=== PATIENT | male | born 1955 | race Caucasian/White ===

== ENCOUNTER 2016-10-24 15:31 | Emergency (ER) | payer MEDICARE, OTHER ==
[2016-10-24 15:57] VITALS: TEMP 95.9
--- NOTE | 2016-10-24 16:39 | ED.PDOC ---
History of Present Illness - General Chief Complaint: Syncope/Near Syncope Stated Complaint: syncope Time Seen by Provider: 10/24/16 16:34 Source: patient, RN notes reviewed, EMS notes reviewed Exam Limitations: no limitations - History of Present Illness Initial Comments: His friend stated patient is a care home resident and she went to visit him this afternoon and they were walking to her moss pick[employer] truch to get his clothes [facility] patient doesnt want to wait and seat at the [facility] and while walking suddenly felt weak and leaned on his friends shoulder was able to hold him then gradually seated on the ground was moaning then nurse was called up then ems.Patient had signed DO NOT RESUSCITATE will. Timing/Prior Episodes: remote history - 2 months ago was hospitalized at [facility] and evaluation done according to friend he has bad coronaries and not candidate for CABG since he is a poor surgical risk Precipitating Factors: none Context: activity Loss of Consciousness: brief (seconds) Current Symptoms: back to normal, weakness Allergies/Adverse Reactions: Allergies NO KNOWN ALLERGY Allergy (Verified 11/08/12 14:50) Home Medications: Ambulatory Orders Lisinopril 40 mg PO DAILY 11/08/12 Pravastatin Sodium 20 mg PO BEDTIME 11/08/12 glipiZIDE [(None)] 5 mg PO BID 11/08/12 Acetaminophen [Tylenol] 1,000 mg PO Q4H PRN 10/24/16 Amiodarone HCl 200 mg PO BID 10/24/16 Aspirin [(None)] 325 mg PO QD 10/24/16 Furosemide [Lasix] 40 mg PO DAILY 10/24/16 Lactobacillus [Acidophilus] 1 cap PO DAILY 10/24/16 Magnesium Hydroxide [Milk Of Magnesia] 30 ml PO DAILY PRN 10/24/16 Metoprolol Tartrate 50 mg PO BID 10/24/16 Multiple Vitamin [Multivitamins] 1 cap PO DAILY 10/24/16 Multiple Vitamin [Ocuvite] 1 tab PO DAILY 10/24/16 Pantoprazole Sodium 40 mg PO DAILY 10/24/16 Potassium Chloride [K-Tab] 20 meq PO DAILY 10/24/16 Promethazine HCl 25 - 50 mg PO Q4H PRN 10/24/16 Spironolactone 25 mg PO DAILY 10/24/16 Tamsulosin HCl [Flomax] 0.4 mg PO BEDTIME 10/24/16 amLODIPine BESYLATE [Norvasc] 10 mg PO DAILY 10/24/16 Review of Systems - Review of Systems Constitutional: States: no symptoms reported, weakness EENTM: States: no symptoms reported Respiratory: States: no symptoms reported Cardiology: States: syncope Gastrointestinal/Abdominal: States: no symptoms reported Genitourinary: States: no symptoms reported Skin: States: no symptoms reported Neurological: States: see HPI Endocrine: States: no symptoms reported Hematologic/Lymphatic: States: no symptoms reported Past Medical History (General) - Patient Medical History Hx Seizures: No Hx Stroke: Yes - unknown Hx Asthma: No Hx of COPD: No Hx Cardiac Disorders: Yes - diffuse cad,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 % Hx Congestive Heart Failure: Yes Hx Pacemaker: No Hx Hypertension: Yes Hx Diabetes: Yes Hx Gastroesophageal Reflux: Yes Hx Cancer: Yes - Colon CA Hx MRSA: No Surgical History: colectomy, other - carotid endarterectomy - Vaccination History Hx Influenza Vaccination: Yes Hx Pneumococcal Vaccination: - unknown - Social History Hx Tobacco Use: Yes Hx Alcohol Use: No Hx Substance Use: No Hx Physical Abuse: No Hx Emotional Abuse: No - Activities of Daily Living [facility] (if applicable[facility]:: [facility] ([facility] applicable[facility]:: [facility] Grooming Ability: Minimum Assistance Eating (Feeding) Ability: Independent Toileting Ability: Minimum Assistance Physical Exam - Physical Exam General Appearance: Comfortable, No apparent distress, Other - lethargic Eyes, Ears, Nose, Throat Exam: PERRL/EOMI, normal ENT inspection, pharynx normal Neck: non-tender, full range of motion, supple, normal inspection Cardiovascular/Respiratory: regular rate, rhythm, normal peripheral pulses, no JVD, normal breath sounds, no respiratory distress Gastrointestinal/Abdominal: non tender, soft, no organomegaly, no pulsatile mass Back Exam: no CVA tenderness, no vertebral tenderness Extremity: normal range of motion, non-tender, normal inspection, no pedal edema Mental Status: lethargic - somnolent but able to give brief history slowly [employer] [place] Exam: normal hearing, normal speech, other - right hemiparesis Coordination/Gait: other - not tested Motor/Sensory: no pronator drift, negative Babinski's sign Skin Exam: normal color, warm/dry Progress - Progress Progress: 10/24/16 17:16 Had episodes of V-TACH sustained but has DNR signed declining further resuscitave measure if he goes into cardiac arrest.Record showed from [facility] showing severe/diffusedly diseased heavily calcified coronaries with 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 - Results/Orders Results/Orders: 10/24/16 16:44 URINALYSIS Stat 10/24/16 16:45 EKG STAT Laboratory Results WBC 6.2 K/mm3 (4.8-10.8) 10/24/16 17:03 RBC 4.77 M/mm3 (4.70-6.10) 10/24/16 17:03 Hgb 12.9 gm/dL (14.0-18.0) L 10/24/16 17:03 Hct 39.4 % (42.0-52.0) L 10/24/16 17:03 MCV 82.6 fl (80.0-94.0) 10/24/16 17:03 MCH 27.0 pg (27.0-31.0) 10/24/16 17:03 MCHC 32.8 g/dL (33.0-37.0) L 10/24/16 17:03 RDW 15.9 % (11.5-14.5) H 10/24/16 17:03 Plt Count 190 K/mm3 (130-400) 10/24/16 17:03 MPV 7.8 fl (7.40-10.4) 10/24/16 17:03 Absolute Neuts (auto) 5.20 K/uL (1.8-6.8) 10/24/16 17:03 Absolute Lymphs (auto) 0.50 K/uL (1.0-3.4) L 10/24/16 17:03 Absolute Monos (auto) 0.40 K/uL (0.2-0.8) 10/24/16 17:03 Absolute Eos (auto) 0.00 K/uL (0.0-0.4) 10/24/16 17:03 Absolute Basos (auto) 0.00 K/uL (0.0-0.1) 10/24/16 17:03 Neutrophils % 83.6 % (42.0-78.0) H 10/24/16 17:03 Lymphocytes % 8.4 % (20.0-50.0) L 10/24/16 17:03 Monocytes % 6.8 % (2.0-9.0) 10/24/16 17:03 Eosinophils % 0.6 % (1.0-5.0) L 10/24/16 17:03 Basophils % 0.6 % (0.0-2.0) 10/24/16 17:03 Sodium 124 mmol/L (135-145) L 10/24/16 17:03 Potassium 5.5 mmol/L (3.6-5.0) H 10/24/16 17:03 Chloride 92 mmol/L (101-111) L 10/24/16 17:03 Carbon Dioxide 22 mmol/L (21-31) 10/24/16 17:03 Anion Gap 15.5 (12-18) 10/24/16 17:03 BUN 33 mg/dL (7-18) H 10/24/16 17:03 Creatinine 1.54 mg/dL (0.6-1.3) H 10/24/16 17:03 BUN/Creatinine Ratio 21.4 (10-20) H 10/24/16 17:03 Random Glucose 282 mg/dL (70-105) H 10/24/16 17:03 Serum Osmolality 267.1 mOsm/L (275-295) L 10/24/16 17:03 Lactic Acid 1.6 mmol/L (0.5-2.2) 10/24/16 17:15 Calcium 9.0 mg/dL (8.4-10.2) 10/24/16 17:03 Total Bilirubin 1.1 mg/dL (0.2-1.0) H 10/24/16 17:03 AST 16 IU/L (10-42) 10/24/16 17:03 ALT 17 IU/L (10-60) 10/24/16 17:03 Alkaline Phosphatase 67 IU/L (42-121) 10/24/16 17:03 Serum Total Protein 7.9 gm/dL (6.4-8.2) 10/24/16 17:03 Albumin 4.2 g/dl (3.2-5.5) 10/24/16 17:03 Globulin 3.7 gm/dL (2.3-3.5) H 10/24/16 17:03 Albumin/Globulin Ratio 1.1 (1.1-1.9) 10/24/16 17:03 Lipase 50 U/L (22-51) 10/24/16 17:03 - EKG/XRAY/CT XRAY: chest - no acute changes Departure - Departure Clinical Impression: Syncope, cardiogenic, CAD, multiple vessel, Diabetes 1.5, managed as type 2, DNR no code (do not resuscitate), History of colon cancer, no staging CHF (congestive heart failure), NYHA class III Qualifiers: Congestive heart failure type: combined Time of Disposition: 17:58 Disposition: Discharge Hospice In-Home Srv Condition: Poor Departure Forms: ED Discharge - Pt. Copy, Patient Portal Self Enrollment Referrals: Gabino Castorena MD [Primary Care Provider] - 1-2 Weeks Home Medications: Ambulatory Orders Lisinopril 40 mg PO DAILY 11/08/12 Pravastatin Sodium 20 mg PO BEDTIME 11/08/12 glipiZIDE [(None)] 5 mg PO BID 11/08/12 Acetaminophen [Tylenol] 1,000 mg PO Q4H PRN 10/24/16 Amiodarone HCl 200 mg PO BID 10/24/16 Aspirin [(None)] 325 mg PO QD 10/24/16 Furosemide [Lasix] 40 mg PO DAILY 10/24/16 Lactobacillus [Acidophilus] 1 cap PO DAILY 10/24/16 Magnesium Hydroxide [Milk Of Magnesia] 30 ml PO DAILY PRN 10/24/16 Metoprolol Tartrate 50 mg PO BID 10/24/16 Multiple Vitamin [Multivitamins] 1 cap PO DAILY 10/24/16 Multiple Vitamin [Ocuvite] 1 tab PO DAILY 10/24/16 Pantoprazole Sodium 40 mg PO DAILY 10/24/16 Potassium Chloride [K-Tab] 20 meq PO DAILY 10/24/16 Promethazine HCl 25 - 50 mg PO Q4H PRN 10/24/16 Spironolactone 25 mg PO DAILY 10/24/16 Tamsulosin HCl [Flomax] 0.4 mg PO BEDTIME 10/24/16 amLODIPine BESYLATE [Norvasc] 10 mg PO DAILY 10/24/16
--- NOTE | 2016-10-24 17:15 | RAD ---
EXAM DESCRIPTION: X-RAY CHEST- One View CLINICAL HISTORY: Nausea and vomiting. COMPARISON: 09/15/2016 TECHNIQUE: Single view of the chest. FINDINGS: There are no discrete air space infiltrates, pneumothoraces or pleural effusions. The pulmonary vascularity is normal. The cardiomediastinal silhouette is stable. IMPRESSION: There are no acute lung parenchymal findings. Electronically signed by: Walter Pierson MD 10/24/2016 17:13
[2016-10-24 18:49] VITALS: BP 138/75; O2SAT 96
== END 2016-10-24 18:49 | disposition hospice, home (50) ==
LOC: ER 15:31
DX: R55 Syncope and collapse (principal); I25.10 Atherosclerotic heart disease of native coronary artery without angina pectoris; E11.9 Type 2 diabetes mellitus without complications; Z66 Do not resuscitate; Z85.038 Personal history of other malignant neoplasm of large intestine; I11.0 Hypertensive heart disease with heart failure; I50.9 Heart failure, unspecified; Z86.73 Personal history of transient ischemic attack (TIA), and cerebral infarction without residual deficits; Z79.899 Other long term (current) drug therapy; K21.9 Gastro-esophageal reflux disease without esophagitis; Z87.891 Personal history of nicotine dependence

== ENCOUNTER → 2017-07-26 | Outpatient (CLI) | payer OTHER | END | disposition home or self-care (01) | LOC: GT 12:04 | PROVIDERS: ATTEND Family Medicine | DX: Z79.01 Long term (current) use of anticoagulants (principal) ==